=== PATIENT | female | born 2005 | race Two or more races ===

== ENCOUNTER 2024-07-14 14:47 | Outpatient (CLI) | payer OTHER | END 2024-07-14 15:49 | disposition home or self-care (01) | LOC: PRENATAL 14:47 | PROVIDERS: ATTEND Obstetrics & Gynecology Maternal & Fetal Medicine | DX: O35.3XX0 Maternal care for (suspected) damage to fetus from viral disease in mother, not applicable or unspecified (principal); O44.00 Complete placenta previa NOS or without hemorrhage, unspecified trimester; Z3A.21 21 weeks gestation of pregnancy ==

== ENCOUNTER 2024-09-29 01:45 | Outpatient (CLI) | payer OTHER | END 2024-09-29 13:57 | disposition home or self-care (01) | LOC: PRENATAL 01:45 | PROVIDERS: ATTEND Obstetrics & Gynecology Maternal & Fetal Medicine | DX: O26.849 Uterine size-date discrepancy, unspecified trimester (principal); O36.8199 Decreased fetal movements, unspecified trimester, other fetus; Z3A.31 31 weeks gestation of pregnancy ==

== ENCOUNTER 2024-10-16 00:10 | Emergency (ER) | payer OTHER ==
[~2024-10-16] VITALS: Ht 157.5 cm; Wt 122.0 kg
[2024-10-16] MEDS ORDERED: PRIMACARE SOFT1 EACH PO (00:33)
[2024-10-16] MEDS ORDERED: AMOX-CLAV 875-1 EACH PO (00:33)
== END 2024-10-16 04:10 | disposition home or self-care (01) ==
LOC: ER 00:10
DX: L02.32 Furuncle of buttock (principal)

== ENCOUNTER 2024-11-11 11:56 | Outpatient (CLI) | payer OTHER ==
[~2024-11-11 11:56] MED LIST: AMOX-CLAV 875-1 EACH PO; PRIMACARE SOFT1 EACH PO
== END 2024-11-11 12:43 | disposition home or self-care (01) ==
LOC: NST 11:56
PROVIDERS: ATTEND Obstetrics & Gynecology
DX: Z34.83 Encounter for supervision of other normal pregnancy, third trimester (principal)